=== PATIENT | female | born 1955 | race Caucasian/White ===

== ENCOUNTER 2016-08-24 18:31 | Emergency (ER) | payer SELFPAY ==
[2016-08-24 19:21] LABS: ALBUMIN 4.2 gm/dL (3.4-5.0); ALKALINE PHOSPHATASE 69 U/L (50-136); ALT/SGPT 35 U/L (3.5-33.9); AMYLASE 31 U/L (15.62-74.58); AST/SGOT 31 U/L (7.04-26.96); BILIRUBIN,TOTAL 0.31 mg/dL (0.0-1.0); BLOOD UREA NITROGEN 8 mg/dL (7-18); CALCIUM 9.2 mg/dL (8.7-10.7); CARBON DIOXIDE 23 mmol/L (21-32); CREATININE 0.5 mg/dL (0.6-1.3); GLUCOSE,RANDOM 187 mg/dL (70-99); LIPASE 33 U/L (6.75-60.75); POTASSIUM 3.5 mmol/L (3.5-5.1); SODIUM 138 mmol/L (136-145); TOTAL PROTEIN 7.3 gm/dL (6.4-8.2)
[2016-08-24 19:31] LABS: HEMATOCRIT 43.3 % (34-45); HEMOGLOBIN 13.9 g/dL (11.2-15.7); MEAN CORPUSCULAR HEMOGLOBIN 28.1 pg (27.0-33.0); MEAN CORPUSCULAR HGB CONC 32.1 g/dL (32.0-36.0); MEAN CORPUSCULAR VOLUME 87.8 fL (79-95); RED BLOOD COUNT 4.93 x10_6/uL (3.9-5.2); WHITE BLOOD COUNT 9.8 x10_3/uL (4.0-10.0)
[2016-08-24 19:32] LABS: PLATELET COUNT 201 x10_3/uL (182-369)
== END 2016-08-24 21:41 | disposition short-term general hospital (02) ==
LOC: ER 18:31
PROVIDERS: General Practice
DX: K57.30 Diverticulosis of large intestine without perforation or abscess without bleeding (principal); K42.9 Umbilical hernia without obstruction or gangrene; K52.9 Noninfective gastroenteritis and colitis, unspecified; R74.8 Abnormal levels of other serum enzymes; K76.0 Fatty (change of) liver, not elsewhere classified; D35.01 Benign neoplasm of right adrenal gland; K64.5 Perianal venous thrombosis; R11.2 Nausea with vomiting, unspecified; E66.01 Morbid (severe) obesity due to excess calories; Z79.899 Other long term (current) drug therapy
CPT/HCPCS: 36415; 80053; 82150; 82962; 83690; 85025; 96361; 96374; 99070; 99284; 99284-25; J7040